=== PATIENT | female | born 1985 | race Caucasian/White ===

== ENCOUNTER 2017-09-11 11:26 | Emergency (ER) | payer MEDICAID, OTHER ==
[2017-09-11 11:51] VITALS: BP 113/69; PULSE 67; RESP 15; TEMP 99.1; O2SAT 100
--- NOTE | 2017-09-11 12:03 | ED PDOC ---
HPI: Female Pain Time Seen by Provider: 09/11/17 11:47 Chief Complaint (Nursing): Abdominal Pain Chief Complaint (Provider): Abdominal Pain History Per: Patient History/Exam Limitations: no limitations Onset/Duration Of Symptoms: Days (x2 weeks), Worse Since (today) Current Symptoms Are (Timing): Still Present Additional Complaint(s): 32 year old female presents to the emergency department with a complaint of lower abdominal pain associated with brownish vaginal discharge ongoing for the last 2 weeks. Today, she noticed slight vaginal bleeding which prompted ED visit. Patient reports a positive home test with LMP reported on 07/30. She denies any fever, chills, vomiting, diarrhea, difficulty urinating or bloody urine. . PMD: none provided Past Medical History Reviewed: Historical Data, Nursing Documentation, Vital Signs Vital Signs: Last Vital Signs Temp 99.1 F 09/11/17 11:48 Pulse 67 09/11/17 11:48 Resp 15 09/11/17 11:48 BP 113/69 09/11/17 11:48 Pulse Ox 100 09/11/17 11:48 - Medical History PMH: No Chronic Diseases - Surgical History Surgical History: (x3) - Family History Family History: States: Unknown Family Hx - Social History Current smoker - smoking cessation education provided: No Alcohol: None Drugs: Denies - Home Medications Home Medications: Ambulatory Orders Medication Instructions Recorded Multivit/Folic Acid/I 1 tab PO DAILY 05/06/15 [ Plus] Ibuprofen [Motrin Tab] 600 mg PO Q6H PRN #20 tab 05/09/15 Sennosides/Docusate Sodium 1 each PO HS PRN #20 tablet 05/09/15 [Senokot-S Tablet] oxyCODONE/Acetaminophen [Percocet 1 tab PO Q6 PRN #20 tab 05/09/15 5/325 mg Tab] Multivit/Folic Acid/I 1 tab PO DAILY #30 tab 09/11/17 [ Plus] - Allergies Allergies/Adverse Reactions: Allergies Allergy/AdvReac Type Severity Reaction Status Date / Time No Known Allergies Allergy Verified 09/11/17 11:48 Review of Systems ROS Statement: Except As Marked, All Systems Reviewed And Found Negative Constitutional: Negative for: Fever, Chills Gastrointestinal: Positive for: Abdominal Pain (lower). Negative for: Vomiting , Diarrhea Genitourinary Female: Positive for: Vaginal Discharge (brown), Vaginal Bleeding. Negative for: Dysuria, Hematuria Physical Exam - Reviewed Nursing Documentation Reviewed: Yes Vital Signs Reviewed: Yes - Physical Exam Appears: Positive for: Non-toxic, No Acute Distress Head Exam: Positive for: ATRAUMATIC, NORMAL INSPECTION, NORMOCEPHALIC Skin: Positive for: Normal Color Eye Exam: Positive for: Normal appearance Neck: Positive for: Normal Cardiovascular/Chest: Positive for: Regular Rate, Rhythm Respiratory: Positive for: Normal Breath Sounds. Negative for: Respiratory Distress Gastrointestinal/Abdominal: Positive for: Soft, Tenderness (LLQ; suprapubic) Pelvic Exam: Positive for: External Exam Normal, Tender Adnexa (left). Negative for: Active Bleeding, Cervicitis, Discharge, Lesions, Mass Extremity: Positive for: Normal ROM (upper/lower) Neurologic/Psych: Positive for: Alert (x3), Oriented - ECG O2 Sat by Pulse Oximetry: 100 (RA) Pulse Ox Interpretation: Normal - Radiology X-Ray: Read By Radiologist (single IUP with good heart activity) Medical Decision Making Medical Decision Making: Initial Impression: Vaginal bleeding; Abdominal pain Initial Plan: * Urine * Urine dipstick Time: 1223 --Pelvic exam performed with CALI Garibay as commercial lines manager. Time: 1340 --US transvag FINDINGS: UTERUS: The uterus is retroverted measuring 8.0 x 4.9 x 5.6 with no definite myometrial lesion appreciable. There is a gestational sac identified within the endometrial cavity measuring 2.47 cm corresponding to a a ultrasonic is 7 weeks 1 day. Mean crown-rump length measurement is 0.55 cm corresponding 6 weeks 2 days which is nearly identical to LMP derived dates of 6 weeks 1 day based on LMP 07/30/2017. cardiac tears recorded 159 beats per minute. Estimated date of delivery 05/02/2018. Decidual reaction appears unremarkable. No evidence of hemorrhage related to gestation. ENDOMETRIUM: IUP. CERVIX: Cervical length measures 3.6 cm with a closed internal os. No cervical abnormality identified. RIGHT OVARY: Measures 2.3 x 1.2 x 2.5 cm. No solid mass. Normal flow. A few small follicles are identified in the right ovary. LEFT OVARY: Left ovary is not identified. No suspicious left adnexal finding appreciated. FREE FLUID: No significant free fluid noted. OTHER FINDINGS: None. IMPRESSION: Single viable intrauterine gestation is identified with average ultrasonic age of 6 weeks 2 days, concordant with menstrual derived dates. cardiac activity 159 beats per minute. No definite decidual hemorrhage identified. Unremarkable right ovary. Left ovary not visualized. Scribe Attestation: Documented by Estela Chavez, acting as a scribe for Jessica Caldwell MD. Provider Scribe Attestation: All medical record entries made by the Scribe were at my direction and personally dictated by me. I have reviewed the chart and agree that the record accurately reflects my personal performance of the history, physical exam, medical decision making, and the department course for this patient. I have also personally directed, reviewed, and agree with the discharge instructions and disposition. Disposition - Clinical Impression Clinical Impression: Normal IUP (intrauterine ) on ultrasound - Patient ED Disposition Is Patient to be Admitted: No Doctor Will See Patient In The: Office Counseled Patient/Family Regarding: Diagnosis, Need For Followup - Disposition Referrals: [facility] [Outside] [facility] [Outside] [facility] [Outside] [facility] [Outside] Disposition: Routine/Home Disposition Time: 13:50 Condition: STABLE Prescriptions: Multivit/Folic Acid/I [ Plus] 1 tab PO DAILY #30 tab Forms: [facility] (Mold[place]) Print Language: TOGOLESE - POA Present On Arrival: None
--- NOTE | 2017-09-11 13:42 | US ---
HISTORY: Left adnexal tenderness COMPARISON: , left adnexal tenderness. TECHNIQUE: FINDINGS: UTERUS: The uterus is retroverted measuring 8.0 x 4.9 x 5.6 with no definite myometrial lesion appreciable. There is a gestational sac identified within the endometrial cavity measuring 2.47 cm corresponding to a a ultrasonic is 7 weeks 1 day. Mean crown-rump length measurement is 0.55 cm corresponding 6 weeks 2 days which is nearly identical to LMP derived dates of 6 weeks 1 day based on LMP 07/30/2017. cardiac tears recorded 159 beats per minute. Estimated date of delivery 05/02/2018. Decidual reaction appears unremarkable. No evidence of hemorrhage related to gestation. ENDOMETRIUM: IUP. CERVIX: Cervical length measures 3.6 cm with a closed internal os. No cervical abnormality identified. RIGHT OVARY: Measures 2.3 x 1.2 x 2.5 cm. No solid mass. Normal flow. A few small follicles are identified in the right ovary. LEFT OVARY: Left ovary is not identified. No suspicious left adnexal finding appreciated. FREE FLUID: No significant free fluid noted. OTHER FINDINGS: None. IMPRESSION: Single viable intrauterine gestation is identified with average ultrasonic age of 6 weeks 2 days, concordant with menstrual derived dates. cardiac activity 159 beats per minute. No definite decidual hemorrhage identified. Unremarkable right ovary. Left ovary not visualized.
== END 2017-09-11 14:28 | disposition home or self-care (01) ==
LOC: H.ER 11:26
DX: O26.891 Other specified pregnancy related conditions, first trimester (principal); Z3A.01 Less than 8 weeks gestation of pregnancy

== ENCOUNTER 2018-05-02 08:31 | Inpatient (IN) | payer MEDICAID, SELFPAY ==
[2018-05-02 09:23] VITALS: BMI 30.7
[2018-05-02] MEDS ORDERED: ceFAZolin 1 GM in Sodium Chloride 0.9% 100 ML IVPB ONE (09:27)
[2018-05-02] MEDS ORDERED: OXYTOCIN/0.9 % NS 20 UNIT/1,000 ML BAG IV SCH (09:30)
[2018-05-02] MEDS ORDERED: Oxytocin 30 UNIT 30 UNITS/500 ML BAG IV ONE (09:30)
[2018-05-02] MEDS ORDERED: Lactated Ringer's 1,000 ML IV SCH ×2 (09:30→14:01)
[2018-05-02] MEDS: Lactated Ringer's 1,000 ML IV ONE ×2 (09:30→10:00)
[2018-05-02 09:36] LABS: BASO # 0.1 K/uL (0.0-0.2); BASO % 0.7 % (0.0-2.0); EOS # 0.1 K/uL (0.0-0.7); EOS % 0.6 % (0.0-4.0); HEMOGLOBIN 11.3 g/dL (12.0-16.0); LYMPH # 2.5 K/uL (1.0-4.3); LYMPH % 23.6 % (20.0-40.0); MEAN CELL VOLUME 88.8 fl (81.0-99.0); MEAN CORPUSCULAR HEMOGLOBIN 29.7 pg (27.0-31.0); MEAN CORPUSCULAR HGB CONC 33.4 g/dL (33.0-37.0); MEAN PLATELET VOLUME 10.5 fl (7.2-11.7); MONO % 9.2 % (0.0-10.0); NEUT # 6.9 K/uL (1.8-7.0); NEUT % 65.9 % (50.0-75.0); NRBC % 0.1 % (0.0-0.0); RBC 3.81 Mil/uL (3.80-5.20); RED CELL DISTRIBUTION WIDTH 14.2 % (11.5-14.5); WHITE BLOOD COUNT 10.4 K/uL (4.8-10.8)
[2018-05-02] MEDS ORDERED: ceFAZolin 2 GM in Sodium Chloride 0.9% 100 ML IVPB ONE (10:15)
[2018-05-02] MEDS ORDERED: Morphine 1 mg/ml preservative-free Inj(Duramorph) ONE (10:49)
[2018-05-02] MEDS ORDERED: ePHEDrine 50 mg/ml Inj ONE (11:07)
[2018-05-02] MEDS ORDERED: DiphenhydrAMINE 50 mg/ml Inj IVP PRN ×2 (11:40→14:01)
[2018-05-02] MEDS ORDERED: Naloxone 0.4 mg/ml Inj (Adult) IVP PRN ×2 (11:40→14:01)
[2018-05-02] MEDS ORDERED: Morphine 4 MG/ML VIAL IV PRN ×2 (11:40→14:01)
[2018-05-02] MEDS ORDERED: Cellulose Hemostat 2X3 Sheet ONE (11:51)
--- NOTE | 2018-05-02 12:24 | OBADHP ---
Datetime: 05/02/2018 09:51 Admit Comment, IP Provider: 33 yo with IUP @ 39+3 weeks based on LMP of 07/30/17 presents for scheduled repeat C/S. Patient endorses feeling well. Denies vaginal bleeding, loss of fluid per the vagina. Reports mild painful contractions at this time. Denies shortness of breath, chest pain,dysuri a, diarrhea, fevers or chills. ROS negative except for stated above. OB history: 3 previous c/s 1st c/s- performed because of failure to progress 2nd and 3rd performed as repeat C/S PMH: denies Social : denies alcohol, smoking history of illcit drug use Allergies: Denies Medications: PNV Family history: Denies Labs: HIV: negative; RPR: negative; Rubella: Equivical; ABO: O+; Antibody: negative; Hep B ag: neg ative; P.E: vitals are stable Heart: S1 and S2 appreciated. No murmurs Lungs: Clear bilaterally. No Rhonchi, rales or wheezes Abdomen: Soft, Gravid, non-tender to palpation. +BS Extremities: +2 dorsalis pedis pulses bilaterally. No lower extremity swelling bilaterally. Assessment: 33 yo with IUP @ 39+3 weeks based on LMP of 07/30/17 admitted for scheduled rep eat C/S Plan: - Admit to L and D - Plan for Csection - Anesthesia consult - Ancef 2 gm for prophylaxis - NPO diet Discussed with Dr. Nikhil Salazar, PGY 1 Patient seen and examined by me this am. Agree with above H+P. --Dr. King Pelvic Type - PN: Adequate Extremities - PN: Normal Abdomen - PN: Normal Back - PN: Normal Breast - PN: Not Done Lungs - PN: Normal Heart - PN: Normal Thyroid - PN: Normal Neurologic - PN: Normal HEENT - PN: Normal General - PN: Normal FHR - Baseline A Provider: 125 Vital Signs Provider: Reviewed; Within Normal Limits IP Chief Complaint: Scheduled Section NICHD Variability Prov Fetus A: Moderate 6-25bpm NICHD Accel Fetus A IP Provider: [id number] FHR Category Provider Fetus A: Category I NICHD Decel Fetus A IP Provider: None Genitourinary Exam: Normal DTRs - PN: Normal EGA AdmitDate IP: 39.3 IP Adm Impression: Term, intrauterine IP Admit Plan: Admit to unit; Initiate Section protocol
[2018-05-02] MEDS ORDERED: Oxycodone/Acetaminophen 5/325 mg Tab PO PRN ×3 (12:26→14:01)
--- NOTE | 2018-05-02 12:26 | OBDS ---
MATERNAL INFORMATION Provider Comments: See Operative notes LABOR SUMMARY EDC: 05/06/2018 00:00 WEIGHT/LENGTH BABY A Birthweight (gms): 3990 Infant Weight (lb): 8 Infant Weight (oz): 13
--- NOTE | 2018-05-02 23:49 | OP ---
PROCEDURE DATE: 05/02/2018 PREOPERATIVE DIAGNOSIS: Term with previous section x3, desires permanent sterilization. POSTOPERATIVE DIAGNOSIS: Term with previous section x3, desires permanent sterilization. PROCEDURE: Repeat low-transverse section with bilateral tubal ligation. SURGEON: Ortega Soni MD SURGICAL NURSE PRACTITIONER: Dr. Jagruti Sanchez. ESTIMATED BLOOD LOSS: 800 mL. URINE OUTPUT: 225 mL, clear at the end of procedure. INTRAVENOUS FLUID: 2500 mL of lactated Ringer's. ANESTHESIA: Spinal. ANESTHESIA ADMINISTERED BY: Dr. Shannon. PATHOLOGY: Segment of right and left fallopian tube. CLOSURE: Subcuticular with 3-0 Monocryl. FINDINGS: A live male with Apgars of 9 and 9, weight 9 pounds 8.7 ounces, delivered in vertex presentation at 11:28 a.m. Amniotic fluid clear. Grossly normal tubes, ovaries, and uterus. DESCRIPTION OF PROCEDURE: The patient was taken to the operating room and given spinal anesthesia without difficulty. She was then prepped and draped in a normal sterile fashion in the dorsal supine position with leftward tilt. A Pfannenstiel skin incision was then made with scalpel and carried to underlying fascia with the Bovie. The fascia was incised in the midline and the incision was extended laterally using the Bovie. The inferior aspect of the fascial incision was then grasped with Bennett clamps, elevated, and the underlying rectus muscles were dissected off sharply with the Bovie, then bluntly. Attention was then turned to the superior aspect of the fascial incision, which in a similar fashion was grasped with Bennett clamps, elevated. The fascia was removed from the underlying rectus with the Bovie, then bluntly. The rectus muscles were in the midline bluntly, and this incision was then extended laterally, superiorly, and inferiorly, paying close attention to the bladder. The bladder blade was inserted. The vesicouterine peritoneum was identified and taken down with the Metzenbaum scissors and the lower uterine segment was seen, and this was incised in a transverse fashion with the scalpel. This incision was then extended laterally using the bandage, and the membranes were then ruptured. The baby was delivered in vertex presentation atraumatically. The nose and mouth were suctioned in the abdomen. The cord was doubly clamped and cut, and the was handed off to the waiting liquor merchant. Cord blood was then taken. The placenta was extracted manually and intact. The uterus was exteriorized and cleared of all clots and debris. The uterine incision was then closed with 1 Vicryl in a running-locked fashion and good hemostasis was then noted. Attention was then turned to the tubes, at which time, a modified Elgin procedure was performed using a 2-0 chromic suture bilaterally. A segment of the right and left fallopian tube were removed and sent off to pathology. The Bovie was used to obtain good hemostasis at the cut portion of the tube. Inspection of the incision again showed minimal bleeding and one further [id number] suture was placed followed by Surgicel and good hemostasis was noted throughout. Copious irrigation was undertaken. The fascia was then reapproximated with 2-0 Vicryl in a running fashion, and the muscle was then reapproximated with 0 Vicryl in a running fashion as well. Good hemostasis was again noted. The fascia was reapproximated with 0 Vicryl in a running fashion bilaterally to the midline. The Bovie was used to obtain good hemostasis on the subcutaneous fat and this layer was also closed with a 3-0 plain suture. Good hemostasis was again noted. The skin was closed with 3-0 Monocryl on a Te needle for subcuticular stitch and the incision was covered with sterile dressing. The patient tolerated the procedure well. Sponge, lap, and needle counts were correct x 4. Ancef 2 g were given preoperatively. The patient was taken to the recovery room in stable condition. There was no injury to the bladder, bowel, ureter, or baby. Ortega Soni MD
[2018-05-03 06:41] LABS: MEAN CELL VOLUME 88.8 fl (81.0-99.0); MEAN CORPUSCULAR HEMOGLOBIN 29.4 pg (27.0-31.0); MEAN CORPUSCULAR HGB CONC 33.1 g/dL (33.0-37.0); RBC 3.4 Mil/uL (3.80-5.20); RED CELL DISTRIBUTION WIDTH 14.6 % (11.5-14.5); WHITE BLOOD COUNT 12.8 K/uL (4.8-10.8)
[2018-05-03] MEDS: Multivitamin With Minerals Tab PO SCH (08:59)
[2018-05-03] MEDS ORDERED: Multivitamin With Minerals Tab PO SCH (09:00)
--- NOTE | 2018-05-03 11:30 | OBPPN ---
Datetime: 05/03/2018 06:09 PP Pain Prov: Within normal limits PP Nausea Prov: Denies PP Flatus Prov: No PP BM Prov: No PP Breasts Prov: Not Done PP Heart Prov: Normal PP Lungs Prov: Normal PP Abdomen/Uterus Prov: Normal PP Lochia Prov: Normal PP Vulva/Perineum Prov: Not Done PP CVA Tenderness Prov: Not Done PP Extremities Prov: Normal PP C/S Incision Prov: Normal PP Progress Prov: Normal PP Impression Prov: Normal progression PP Plan Prov: Continue present management PP Progress Note Prov: POD 1 S: 33 yo s/p repeat C-sec on 05/02/18, POD1. No overnight events. Pain tolerated with medicat ion. Ambulating without dizziness/ lightheadedness/palpatations. and bottle feeding. Lo shaggy < menses. -flatus/- BM. Denies fever/chills, diarrhea, nausea/vomiting, chest pain, dyspnea, and dizziness. Tolerating regular diet. O: VS: stable GEN: NAD Cardio: S1S2, no murmurs Lungs: clear breath sounds b/l, no wheezing Abdomen: BS+, appropriate tenderness to palpation. Incision not visualized, dressing intact dry an d clean. Uterus is firm and at the level of the umbilicus. Appropriate tenderness EXT: No edema, calves non-tender NEURO/PSYCH: AAOx3, no grossly focal deficits, preserved affect and mood. H/H: aCBC 11.3/33.8 pCBC: PENDING Assessment/Plan: 33 yo s/p repeat C-sec on 05/02/18, POD1. Pt remains afebrile, tolerating pa in with medication. -Anticipating discharge 05/05 -Encourage ambulating -Percocet 5/325mg q4 and Motrin 600mg po q6 for pain as per pain scale -Senakot 17.2mg po QHS -Colace 100mg BID -Encourage and ambulation Discussed with Dr Nikhil Singer PGY1 Patient seen and examined by me this am. Agree with above resident note. --Dr. King IP PP Procedures: None Vital Signs Provider PP: Reviewed; Within Normal Limits
[2018-05-03] MEDS: Oxycodone/Acetaminophen 5/325 mg Tab PO PRN (20:30)
[2018-05-04] MEDS: Multivitamin With Minerals Tab PO SCH (08:32)
[2018-05-04] MEDS ORDERED: Measles, Mumps, and Rubella 0.5 ML VIAL SC ONE (10:00)
[2018-05-04] MEDS: Oxycodone/Acetaminophen 5/325 mg Tab PO PRN (13:11)
--- NOTE | 2018-05-04 15:03 | OBPPN ---
Datetime: 05/04/2018 05:48 PP Pain Prov: Within normal limits PP Nausea Prov: Denies PP Flatus Prov: Yes PP BM Prov: No PP Breasts Prov: Not Done PP Heart Prov: Normal PP Lungs Prov: Normal PP Abdomen/Uterus Prov: Normal PP Lochia Prov: Normal PP Vulva/Perineum Prov: Not Done PP CVA Tenderness Prov: Not Done PP Extremities Prov: Normal PP C/S Incision Prov: Normal PP Progress Prov: Normal PP Impression Prov: Normal progression PP Plan Prov: Continue present management PP Progress Note Prov: POD 2 S: 33 yo s/p repeat C-sec on 05/02/18, POD2. No overnight events. Pain tolerated with medicat ion. Ambulating without dizziness/ lightheadedness/palpatations. and bottle feeding. Lo shaggy < menses. -flatus/- BM. Denies fever/chills, diarrhea, nausea/vomiting, chest pain, dyspnea, and dizziness. Tolerating regular diet. O: VS: stable GEN: NAD Cardio: S1S2, no murmurs Lungs: clear breath sounds b/l, no wheezing Abdomen: BS+, appropriate tenderness to palpation. Incision not visualized, dressing intact dry an d clean. Uterus is firm and at the level of the umbilicus. Appropriate tenderness EXT: No edema, calves non-tender NEURO/PSYCH: AAOx3, no grossly focal deficits, preserved affect and mood. H/H: aCBC 11.3/33.8 pCBC: 01/17.2 Assessment/Plan: 33 yo s/p repeat C-sec on 05/02/18, POD2. Pt remains afebrile, tolerating pa in with medication. -Anticipating discharge 05/05 -Encourage ambulating -Percocet 5/325mg q4 and Motrin 600mg po q6 for pain as per pain scale -Senakot 17.2mg po QHS -Colace 100mg BID -Encourage and ambulation Case discussed with Dr Shayan Singer PGY1 Attending addendum: I saw and examined the patient at bedside myself this morning. I reviewed the resident note above and agree with findings and management. Anticipate DC home tomorrow. dulcolax supp if needed. Esperanza Hollins MD IP PP Procedures: None Vital Signs Provider PP: Reviewed; Within Normal Limits
[2018-05-05] MEDS: Multivitamin With Minerals Tab PO SCH (09:08)
--- NOTE | 2018-05-05 09:10 | OBPPN ---
Datetime: 05/05/2018 06:32 PP Pain Prov: Within normal limits PP Nausea Prov: Denies PP Flatus Prov: Yes PP BM Prov: No PP Breasts Prov: Not Done PP Heart Prov: Normal PP Lungs Prov: Normal PP Abdomen/Uterus Prov: Normal PP Lochia Prov: Normal PP Vulva/Perineum Prov: Normal PP CVA Tenderness Prov: Normal PP Extremities Prov: Normal PP C/S Incision Prov: Normal PP Progress Prov: Normal PP Impression Prov: Normal progression PP Plan Prov: Continue present management PP Progress Note Prov: POD 2 S: 33 yo s/p repeat C-sec on 05/02/18, POD3. No overnight events. Pain tolerated with medicat ion. Ambulating without dizziness/ lightheadedness/palpatations. and bottle feeding. Lo shaggy < menses. -flatus/- BM. Denies fever/chills, diarrhea, nausea/vomiting, chest pain, dyspnea, and dizziness. Tolerating regular diet. O: VS: stable GEN: NAD Cardio: S1S2, no murmurs Lungs: clear breath sounds b/l, no wheezing Abdomen: BS+, appropriate tenderness to palpation. Incision not visualized, dressing intact dry an d clean. Uterus is firm and at the level of the umbilicus. Appropriate tenderness EXT: No edema, calves non-tender NEURO/PSYCH: AAOx3, no grossly focal deficits, preserved affect and mood. H/H: aCBC 11.3/33.8 pCBC: 01/17.2 Assessment/Plan: 33 yo s/p repeat C-sec on 05/02/18, POD3. Pt remains afebrile, tolerating pa in with medication. -Discharge today 05/05 -Encourage ambulating -Percocet 5/325mg q4 and Motrin 600mg po q6 for pain as per pain scale -Senakot 17.2mg po QHS -Colace 100mg BID -Encourage and ambulation Cortney Salazar, PGY 1 Attending addendum: I saw and examined the patient at bedside myself this morning. I reviewed the resident note above and agree with findings and management. DC home today. Esperanza Hollins MD IP PP Procedures: None Vital Signs Provider PP: Reviewed; Within Normal Limits
--- NOTE | 2018-05-05 09:12 | OBDCSUM ---
Datetime: 05/05/2018 06:32 Discharged to, Provider: Home Follow up at, Provider: [facility] Disch Instr Activity: Normal activity Disch Instr Diet: Regular Discharge Instructions, Provider: Routine instructions given Discharge Diagnosis, Provider: Term Delivered Discharge Time: 05/05/2018 10:00 Follow up in weeks, Provider: 1 week wound check Disch Referrals: None Contraception discussed, Prov: Yes Disch Activity Restrictions: No exercising; No lifting; No sexual activity; Nothing in vagina - Inte rcourse, tampons, douche Discharge Comment, Provider: 33 yo s/p C-sec of baby boy on 05/02/18 at 39+3 weeks EGA. [place]: Male, Wt. 4330 gm, 9/9 Post- D/C Summary: No OB complications. No complications during post- period. Lochia i s less than menses. Pt able to pass flatus and has passed a BM, voiding well and able to ambulate wit hout difficulty. Tolerating regular diet w/o N/V. Fundus firm below umbilicus level. Pt is hemodynami amrik stable (EBL 800cc). H/H: aCBC: 11.3/33.8; pCBC: 1030.2 Discharge Instructions given to patient: Encourage PNV 1 tab po q/day Ibuprofen 600 mg 1 tab po prn q4-6 if moderate pain #30. NO REFILL. Percocet 5/325 mg 1tab po prn q6h if severe pain #20. NO REFILL Ambulatory with caution, nothing per vagina/sex for 4 weeks, no heavy lifting, avoid stairs, if ex cessive bleeding or fever without relief from Tylenol go to ED Follow-up with Dr. Benitez in 1 week for wound check then in 6 weeks for post check. Cortney Salazar, PGY1 Attending addendum: I saw and examined the patient at bedside myself this morning. I reviewed the resident note above and agree with findings and management. DC home today. Esperanza Hollins MD Contraception after Delivery: Tubal Ligation
[2018-05-05] MEDS ORDERED: Measles, Mumps, and Rubella 0.5 ML VIAL SC ONE (11:00)
[2018-05-06 02:39] VITALS: BP 110/70; PULSE 63; RESP 20; TEMP 98.1; O2SAT 97
== END 2018-05-05 15:15 | disposition home or self-care (01) | DRG 540 ==
LOC: H.EROB2 08:31 → H.ERHOLD 09:29 → H.OB/GYN 14:45
PROVIDERS: ADMIT Obstetrics & Gynecology; ATTEND Obstetrics & Gynecology
PROC: 10D00Z1 Extraction of Products of Conception, Low, Open Approach (ICD-10-PCS; principal; 2018-05-02)
PROC: 0UB70ZZ Excision of Bilateral Fallopian Tubes, Open Approach (ICD-10-PCS; 2018-05-02)
PROC: 4A1HXCZ Monitoring of Products of Conception, Cardiac Rate, External Approach (ICD-10-PCS; 2018-05-02)
DX: O34.211 Maternal care for low transverse scar from previous cesarean delivery (principal); N85.8 Other specified noninflammatory disorders of uterus; Z37.0 Single live birth; O69.81X0 Labor and delivery complicated by cord around neck, without compression, not applicable or unspecified; Z3A.39 39 weeks gestation of pregnancy; Z30.2 Encounter for sterilization